=== PATIENT | female | born 1990 | race Native Hawaiian/Other Pacific Islander ===

== ENCOUNTER 2016-10-05 17:56 | Emergency (ER) | payer OTHER ==
[~2016-10-05] VITALS: Ht 175.3 cm; Wt 107.5 kg
[2016-10-05] MEDS ORDERED: HYDR-3182 PO (18:14)
[2016-10-05] MEDS ORDERED: CEPH500C20 PO (18:15)
[2016-10-05 18:30] LABS: PLATELET COUNT 261 K/uL (152-353)
[2016-10-05 19:48] VITALS: BP 156/93; TEMP 99.1
== END 2016-10-05 19:51 | disposition home or self-care (01) ==
LOC: ED 17:56
PROVIDERS: Family Medicine
DX: J02.0 Streptococcal pharyngitis (principal); B37.0 Candidal stomatitis
CPT/HCPCS: 85027; 87081; 87880; 99284

== ENCOUNTER 2017-07-03 11:20 | Emergency (ER) | payer OTHER ==
[~2017-07-03] VITALS: Ht 165.1 cm; Wt 98.4 kg
[~2017-07-03 11:20] MED LIST: CEPH500C20 PO; HYDR-3182 PO
[2017-07-03 11:22] VITALS: TEMP 98.5
[2017-07-03 13:03] LABS: PLATELET COUNT 339 K/uL (152-353)
[2017-07-03 13:09] LABS: POTASSIUM 3.8 mmol/L (3.6-5.2)
[2017-07-03 13:35] VITALS: BP 135/84
== END 2017-07-03 13:36 | disposition home or self-care (01) ==
LOC: ED 11:20
PROVIDERS: Family Medicine
DX: R06.2 Wheezing (principal); R05 Cough
CPT/HCPCS: 80048; 85027; 87804; 94664; 96374; 99284; J2930

== ENCOUNTER 2017-09-30 16:36 | Emergency (ER) | payer OTHER ==
[~2017-09-30] VITALS: Ht 165.1 cm; Wt 89.8 kg
[2017-09-30 16:50] VITALS: BP 136/92; TEMP 98.6
== END 2017-09-30 17:11 | disposition home or self-care (01) ==
LOC: ED 16:36
DX: N10 Acute pyelonephritis (principal)
CPT/HCPCS: 99281

== ENCOUNTER 2017-09-30 20:12 | Emergency (ER) | payer OTHER ==
[~2017-09-30] VITALS: Ht 165.1 cm; Wt 89.8 kg
[2017-09-30 21:47] LABS: PLATELET COUNT 251 K/uL (152-353)
[2017-09-30 22:05] LABS: POTASSIUM 3.6 mmol/L (3.6-5.2)
[2017-09-30 23:28] VITALS: BP 125/71; TEMP 99.1
== END 2017-09-30 23:28 | disposition home or self-care (01) ==
LOC: ED 20:12
DX: N10 Acute pyelonephritis (principal)
CPT/HCPCS: 80053; 81000; 81025; 85027; 96372; 99283; J0696

== ENCOUNTER 2018-03-18 22:06 | Emergency (ER) | payer OTHER ==
[~2018-03-18] VITALS: Ht 165.1 cm; Wt 89.8 kg
[2018-03-19 00:38] VITALS: BP 135/61; TEMP 101.1
== END 2018-03-19 00:40 | disposition home or self-care (01) ==
LOC: ED 22:06
DX: H66.91 Otitis media, unspecified, right ear (principal)
CPT/HCPCS: 87502; 87651; 99283

== ENCOUNTER 2018-07-03 21:34 | Emergency (ER) | payer OTHER ==
[~2018-07-03] VITALS: Ht 165.1 cm; Wt 103.0 kg
[2018-07-03 23:18] VITALS: BP 108/72; TEMP 98.8
== END 2018-07-03 23:22 | disposition home or self-care (01) ==
LOC: ED 21:34
DX: J02.0 Streptococcal pharyngitis (principal)
CPT/HCPCS: 87651; 96372; 99283; J1885; J2930

== ENCOUNTER 2018-07-29 09:26 | Emergency (ER) | payer OTHER ==
[~2018-07-29] VITALS: Ht 165.1 cm; Wt 97.5 kg
[2018-07-29 10:45] LABS: PLATELET COUNT 344 K/uL (152-353)
[2018-07-29 10:53] LABS: POTASSIUM 3.5 mmol/L (3.6-5.2)
[2018-07-29 11:55] VITALS: BP 138/98
== END 2018-07-29 11:55 | disposition home or self-care (01) ==
LOC: ED 09:26
PROVIDERS: Family Medicine
DX: N94.6 Dysmenorrhea, unspecified (principal); N93.8 Other specified abnormal uterine and vaginal bleeding
CPT/HCPCS: 36415; 80053; 81000; 81025; 85027; 96372; 99283; J1885

== ENCOUNTER 2019-08-15 11:16 | Emergency (ER) | payer OTHER ==
[~2019-08-15] VITALS: Ht 165.1 cm; Wt 97.5 kg
[2019-08-15 13:04] VITALS: BP 140/86; TEMP 97.6
== END 2019-08-15 13:10 | disposition home or self-care (01) ==
LOC: ED 11:16
DX: S83.8X2A Sprain of other specified parts of left knee, initial encounter (principal); W18.39XA Other fall on same level, initial encounter; Y92.89 Other specified places as the place of occurrence of the external cause
CPT/HCPCS: 96372; 99283; J1885

== ENCOUNTER 2019-09-21 21:34 | Emergency (ER) | payer OTHER ==
[~2019-09-21] VITALS: Ht 165.1 cm; Wt 97.5 kg
[2019-09-22 01:10] VITALS: BP 142/90; TEMP 98.5
== END 2019-09-22 01:10 | disposition home or self-care (01) ==
LOC: ED 21:34
PROC: 0CQ10ZZ Repair Lower Lip, Open Approach (ICD-10-PCS; principal; 2019-09-21)
DX: S01.511A Laceration without foreign body of lip, initial encounter (principal); S00.83XA Contusion of other part of head, initial encounter; Y04.2XXA Assault by strike against or bumped into by another person, initial encounter; Y92.89 Other specified places as the place of occurrence of the external cause
CPT/HCPCS: 99283

== ENCOUNTER 2020-12-04 15:52 | Emergency (ER) | payer OTHER ==
[~2020-12-04] VITALS: Ht 165.1 cm; Wt 124.3 kg
[2020-12-04 16:15] VITALS: BP 167/108; TEMP 97.1
== END 2020-12-04 16:49 | disposition home or self-care (01) ==
LOC: ED 15:52
DX: Z53.21 Procedure and treatment not carried out due to patient leaving prior to being seen by health care provider (principal)
CPT/HCPCS: 99281

== ENCOUNTER 2021-07-15 15:12 | Emergency (ER) | payer OTHER ==
[~2021-07-15] VITALS: Ht 165.1 cm; Wt 124.3 kg
[2021-07-15 15:15] VITALS: TEMP 98.5
[2021-07-15 16:30] VITALS: BP 150/101
== END 2021-07-15 16:30 | disposition home or self-care (01) ==
LOC: ED 15:12
DX: M25.561 Pain in right knee (principal); M23.8X1 Other internal derangements of right knee
CPT/HCPCS: 99282